=== PATIENT | male | born 1975 | race Caucasian/White ===

== ENCOUNTER 2019-08-31 19:28 | Emergency (ER) | payer OTHER, SELFPAY ==
[2019-08-02 13:54] VITALS: BMI 28.2
[2019-08-31 19:30] VITALS: BP 137/85; PULSE 110; RESP 18; TEMP 37.4; O2SAT 96; BMI 33.5
--- NOTE | 2019-08-31 20:42 | ED.DCSUM_ITS ---
- ER Visit Summary Date of Service: 08/31/19 Chief Complaint: Left middle finger laceration History of Present Illness: The patient is a 44 M who presents with a laceration to his left middle finger that occurred today. Patient states he was cutting wood when a piece of wood kicked up and hit his middle finger. Patient states this happened approximately 11 hours prior to arrival. Patient denies any weakness. Patient admits to some mild numbness in the tip of his finger. Patient states the bleeding has been intermittent throughout the day. Patient states his last tetanus was between 5 and 10 years ago. Physical Examination: Vital signs are stable. Patient is afebrile. Patient is in no acute distress. Skin is warm and dry. There is a 1.5 cm linear laceration over the pad of the distal phalanx of the left middle finger. There is no bony crepitance or step-off. There is full range of motion of the left middle finger. Sensation was intact to light touch in all digits. Capillary refill was less than 2 seconds in all digits. There are no foreign bodies noted. There is no active bleeding noted. Emergency Department Course and Treatment: The left middle finger was cleaned. The wound was anesthetized with 1% plain lidocaine locally. The wound was irrigated with copious amounts of normal saline. The wound was closed with 2 simple interrupted #5-0 nylon sutures under sterile technique. Bacitracin dressing was applied. Patient tolerated the procedure well. Patient was instructed to keep the wound clean and dry. Patient was instructed to follow-up with his primary care physician in 7 days for wound recheck and suture removal. Patient understood and was agreeable with the plan. All questions were answered. Disposition: Discharge home Impression: Left middle finger laceration This note was generated with [employer] dictation software. It may contain incorrect words, spelling, and punctuation that were not noted in review of the chart prior to signing ED Disposition - Plan for ED Patient: Disposition: Home or Assisted Living Diagnosis: Laceration of left middle finger w/o foreign body w/o damage to nail Instructions: LACERATION, Extrem (Suture, Staple or Tape) Referrals: Devika Nj DO [Primary Care Provider] - 7 Days for suture removal
[2019-08-31 20:54] VITALS: PULSE 80; RESP 16
== END 2019-08-31 20:55 | disposition home or self-care (01) ==
PROVIDERS: Emergency Provider Emergency Medicine; Family Provider Internal Medicine; PCP Internal Medicine
DX: S61.213A Laceration without foreign body of left middle finger without damage to nail, initial encounter (principal); W22.8XXA Striking against or struck by other objects, initial encounter; Y93.9 Activity, unspecified; Y92.9 Unspecified place or not applicable; I10 Essential (primary) hypertension; E78.00 Pure hypercholesterolemia, unspecified; Z79.899 Other long term (current) drug therapy
CPT/HCPCS: 12001; 99285

== ENCOUNTER → 2019-11-10 | Outpatient (CLI) | payer OTHER, SELFPAY | END | disposition home or self-care (01) | PROVIDERS: PCP Internal Medicine; Referring Provider Dermatology; Visit Provider Dermatology | DX: L02.32 Furuncle of buttock (principal); L30.0 Nummular dermatitis; L57.8 Other skin changes due to chronic exposure to nonionizing radiation; Z09 Encounter for follow-up examination after completed treatment for conditions other than malignant neoplasm; Z87.2 Personal history of diseases of the skin and subcutaneous tissue | CPT/HCPCS: 87070; 87186; 87205 ==

== ENCOUNTER → 2019-12-12 | Outpatient (CLI) | payer OTHER, SELFPAY ==
--- NOTE | 2019-12-12 12:44 | MRI_ITS ---
STUDY: MRI RIGHT ANKLE WITHOUT CONTRAST REASON FOR EXAM: Right ankle pain and swelling after fracture with ORIF in November 2015, evaluate for posttraumatic ankle arthritis and posterior tibialis tendon tear. TECHNIQUE: Standardized fat and water weighted pulse sequences were obtained in all 3 orthogonal planes. COMPARISON: Radiographs 11/26/2013. FINDINGS: There is postoperative scarring in the subcutis adipose space. Normal posterior tibialis tendon. Normal flexor digitorum longus tendon. Normal flexor hallucis longus tendon. There is a small longitudinal split of the perimalleolar peroneus brevis tendon (T2 axial images 18, 19). The peroneus longus tendon is morphologically normal. Normal tibialis anterior tendon. Normal extensor hallucis longus tendon. Normal extensor digitorum longus tendons. Normal Achilles tendon and teno-osseous insertion. Normal plantar fascia. Normal plantar calcaneal tubercles. Normal intrinsic muscles of the rearfoot. There is mild thickening of the anterior tibiofibular ligament of the distal tibiofibular syndesmotic ligamentous complex consistent with scarring (T2 axial image 13). There is attenuation of the anterior talofibular ligament (T2 axial image 18) consistent with chronic partial tear. Normal calcaneofibular and posterior talofibular ligaments. Normal subtalar ligaments and sinus tarsi. Normal deltoid ligamentous complexes. Normal plantar calcaneonavicular (spring) ligament. There is arthrosis of the tibiotalar articulation with marginal osteophytes, chondral thinning and subchondral cystic change/bone edema of the posterior tibial plafond and adjacent talar dome (inversion recovery sagittal images 11-15). There are intra-articular bodies in the anterior and posterior tibiotalar articulation (T1 sagittal images 12-14, 16), the largest measuring 0.7 cm in length. There is chronic healed fracture deformity of the posterior malleolus (T1 sagittal images 13, 14). There is artifact from orthopedic hardware in the distal fibula. Normal subtalar articulations. Normal talonavicular articulation. Normal calcaneocuboid articulation. Normal navicular-cuneiform articulations. MRI/Lower Ext Joint Only (Routine) IMPRESSION: Tibiotalar arthrosis with intra-articular bodies. Small longitudinal split of the peroneus brevis tendon. Scarring of the anterior tibiofibular ligament. Attenuation of the anterior talofibular ligament. No demonstrated posterior tibialis tendon tear. Electronically Signed: Jeffrey Ellis MD at 14:10 EDT Tel , Service support ,
== END | disposition home or self-care (01) ==
PROVIDERS: PCP Internal Medicine; Referring Provider Podiatrist; Visit Provider Podiatrist
DX: M19.171 Post-traumatic osteoarthritis, right ankle and foot (principal); S86.111A Strain of other muscle(s) and tendon(s) of posterior muscle group at lower leg level, right leg, initial encounter
CPT/HCPCS: 73721

== ENCOUNTER → 2020-08-10 09:28 | Outpatient (CLI) | payer OTHER, SELFPAY ==
[2020-08-10 13:30] LABS: ALB/GLOB Ratio 1.3 RATIO (0.9-2.4); AST(SGOT) 42 U/L (15-37); Alanine Aminotransfer ALT/SGPT 72 U/L (16-61); Albumin, Serum 4.3 g/dL (3.2-5.0); Alkaline Phosphatase 73 U/L (45-117); Anion Gap 7 (5-15); BUN 16 mg/dL (7-18); Calcium,Total 9.4 mg/dL (8.5-10.1); Chloride 105 mmol/L (98-107); Cholesterol 215 mg/dL (200); Creatinine, Serum 1.23 mg/dL (0.70-1.30); EST Glomerular Filtration Rate 67 mL/min (>60); Est Glom Filt Rate - Afr Amer 81 mL/min (>60); Globulin 3.4 g/dL (2.2-4.2); Glucose 98 mg/dL (74-106); High Density Lipoprotein 49 mg/dL; Potassium 3.9 mmol/L (3.5-5.1); Protein, Total 7.7 g/dL (6.4-8.2); Sodium Level 139 mmol/L (136-145); Triglycerides 276 mg/dL; Very Low Density Lipoprotein 55 mg/dL (5-40)
== END ==
PROVIDERS: PCP Family Medicine; Visit Provider Family Medicine
DX: Z00.00 Encounter for general adult medical examination without abnormal findings (principal)
CPT/HCPCS: 36415; 80053; 80061

== ENCOUNTER 2020-11-20 13:40 | Outpatient (RCR) | payer OTHER, SELFPAY ==
[2020-11-20] MEDS: COVID-19 VACC, MRNA(PFIZER)/PF 30 MCG/0.3 ML SYRINGE IM (07:31)
[2020-12-11] MEDS: COVID-19 VACC, MRNA(PFIZER)/PF 30 MCG/0.3 ML SYRINGE IM (07:29)
== END 2021-02-12 23:59 ==
LOC: IMMUN 13:40
PROVIDERS: PCP Family Medicine; Referring Provider Family Medicine; Visit Provider Family Medicine
DX: Z23 Encounter for immunization (principal)
CPT/HCPCS: 0001A; 0002A; 91300

== ENCOUNTER → 2020-12-03 09:57 | Outpatient (CLI) | payer OTHER, SELFPAY ==
[2020-11-22 14:49] VITALS: BMI 31.2
--- NOTE | 2020-12-03 10:01 | US_ITS ---
STUDY: ABDOMINAL ULTRASOUND - lower quadrants. REASON FOR VISIT: Male, 45 years old multiple hernias -- attn. Mesh edge--kaila pt abdomen at mesh edges pls* TECHNIQUE: Ultrasound evaluation of the lower quadrants was performed with real-time and static beard-scale imaging. TECHNICAL QUALITY: Adequate. COMPARISON: None. FINDINGS: There is evidence of left inguinal hernia containing bowel as well as adipose tissue. The patient is status post right inguinal and umbilical hernia repair. The mesh is seen superior to the level of the umbilicus along the midline of the abdomen. The mesh is not deep or inferior to the umbilicus. Mesh is also seen in the right inguinal region. US/Abdomen Limited IMPRESSION: Left inguinal hernia containing bowel and adipose tissue. Status post repair of the umbilical hernia and right inguinal hernia with evidence of a mesh superior to the umbilicus. Deep to the umbilicus and inferior to the umbilicus there is no evidence of mesh. Electronically Signed: Maximus Wade MD at 11:06 EDT , Service support ,
== END ==
PROVIDERS: PCP Family Medicine; Referring Provider Surgery; Visit Provider Surgery
DX: K40.91 Unilateral inguinal hernia, without obstruction or gangrene, recurrent (principal); Z87.19 Personal history of other diseases of the digestive system; Z98.890 Other specified postprocedural states
CPT/HCPCS: 76705

== ENCOUNTER 2020-12-24 08:58 | Day surgery (SDC) | payer OTHER, SELFPAY ==
[2020-11-22 14:49] VITALS: BMI 31.2
--- NOTE | 2020-12-20 10:24 | EKG12_ITS ---
Test Reason : PREOP Blood Pressure : / mmHG Vent. Rate : 067 BPM Atrial Rate : 067 BPM P-R Int : 170 ms QRS Dur : 088 ms QT Int : 404 ms P-R-T Axes : 020 053 022 degrees QTc Int : 426 ms Normal sinus rhythm with sinus arrhythmia Normal ECG Confirmed by WILLIAM BURNETT, EVERT ([id number]), editor in chief GEO LI ([id number]) on 12/21/2020 11:53:00 AM Referred By: Kahsmir Sánchez Confirmed By:EVERT THOMAS MD
[2020-12-20 11:29] LABS: Hematocrit 45.1 % (40-54); Hemoglobin 14.5 g/dL (13.0-16.5); Mean Corp Hgb Conc 32.2 g/dL (32-36); Mean Corpuscular Hgb 30.8 pg (27.0-32.0); Mean Corpuscular Volume 95.8 fL (80-94); Mean Platelet Vol. 11.5 fl (6.2-12.0); Platelet Count 304 K/mm3 (150-450); RBC Distribution Width CV 12.8 % (11.6-14.6); RBC Distribution Width SD 45.6 fl (35.1-43.9); Red Blood Count 4.71 M/mm3 (4.6-6.2); White Blood Count 5.2 K/mm3 (4.4-11.0)
[2020-12-20 12:10] LABS: Anion Gap 6 (5-15); BUN 13 mg/dL (7-18); BUN/Creat Ratio 12.6 RATIO (10-20); Calcium,Total 9.3 mg/dL (8.5-10.1); Chloride 106 mmol/L (98-107); Creatinine, Serum 1.03 mg/dL (0.70-1.30); EST Glomerular Filtration Rate 82 mL/min (>60); Est Glom Filt Rate - Afr Amer 99 mL/min (>60); Glucose 91 mg/dL (74-106); Potassium 4.1 mmol/L (3.5-5.1); Sodium Level 139 mmol/L (136-145)
[2020-12-24] VITALS (9 sets, daily range): BP systolic 97–140; BP diastolic 59–80; PULSE 60–83; RESP 16–18; TEMP 35.9–37.2; O2SAT 92–100; BMI 33.0
[2020-12-24] MEDS: Lactated Ringers 1,000 ML 100 ML IV ×3 (09:43→13:16)
--- NOTE | 2020-12-24 09:43 | HP.PCM_ITS ---
Problem List (1) Recurrent right inguinal hernia Status: Acute (2) Left inguinal hernia Status: Acute History and Physical Date of Admission: 12/24/20 Intake Intake Visit Reasons: f/u abdominal markings Chief Complaint: discuss surgery Allergies No Known Allergies Allergy (Verified 12/04/20 12:00) [facility] Medical History (Updated 11/22/20 @ 15:[address] Kashmir Sánchez MD) Recurrent right inguinal hernia (Acute) Left inguinal hernia (Acute) Knee pain (Acute) Hypertension (Chronic) Surgical History (Updated 11/22/20 @ 15:[address] Kashmir Sánchez MD) History of ventral hernia repair (Acute) HISTORY OF LEFT FOOT SURGERY (Acute) History of hernia repair (Acute) Family History Father Hypertension Social History (Updated 12/04/20 @ 12:[address] Kashmir Sánchez MD) Smoking Status: Never smoker alcohol intake: current alcohol intake frequency: a few times a week HPI HPI HPI: JIGAR SWANSON, is a 45 M who presents to the office today for discussion regarding abdominal ultrasound. I had wanted to CT scan as elucidated in my note below. Insurance would only cover an ultrasound. On ultrasound the tech felt that the inferior extent of the mesh was just close to the umbilicus but did not appear to extend below it. This would therefore allow range to gain access to the abdomen carefully with an Krause technique through the umbilicus. He returned today to discuss his future. Intake Visit Reasons: Hernia Chief Complaint: Left inguinal hernia Outpatient Coding Specialist Required: No Is patient in pain?: No Allergies No Known Allergies Allergy (Verified 11/22/20 14:50) Medications atorvastatin 20 mg tablet 20 mg pe PO DAILY #30 tab 08/02/19 [History Confirmed 11/22/20] lisinopril 10 mg tablet 10 mg PO DAILY #90 tab 08/02/19 [History Confirmed 11/22/20] tamsulosin 0.4 mg capsule 0.4 mg PO QHS #30 cap 11/22/20 [Rx Confirmed 11/22/20] [facility] Medical History Left inguinal hernia (Acute) Knee pain (Acute) Hypertension (Chronic) Surgical History HISTORY OF LEFT FOOT SURGERY (Acute) History of hernia repair (Acute) Family History Father Hypertension Social History (Updated 11/22/20 @ 15:[address] Kashmir Sánchez MD) Smoking Status: Never smoker alcohol intake: current alcohol intake frequency: a few times a week HPI HPI HPI: JIGAR SWANSON, is a 45 M who presents to the office today for surgical consultation regarding what he feels is an obvious left inguinal hernia. Patient is referred by Dr. Romero Schwarz a written copy my surgical consult recommendations will return to him. The patient long ago played soccer in high school. 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 Over the past year he has noted progressive bulging and discomfort in the left groin. Reports that when he was 1-year-old he had a right inguinal hernia repair. The patient previously had a mesh ventral hernia repair. Then that broke down and on December 18 Dr. Rosalino Moya performed a ventral incisional hernia repair for 2 different defects in the upper midline as well as a umbilical hernia repair. He excised the previous circular piece of 4 x 4 centimeter mesh. He placed a Bard composite 6EX mesh 10.2 x 15.2 cm ellipse. This would have been placed so as to incorporate a small umbilical defect as well. It is of note that the patient did have COVID-19 with symptom resolution by September 21, 2020. Claims that he had headache and particularly fever that lingered for 15 days. He claims that he no longer has any side effects. HPI HPI HPI: JIGAR SWANSON, is a 45 M who presents to the office today for ROS General General: No weight change, appetite, fatigue, colon cancer, breast cancer or weakness HEENT HEENT: No difficulty swallowing, eye injury, eye surgery, swollen glands or hoarseness Endo Endocrine: No thyroid disease, diabetes mellitus, thyroid cancer, Hair loss, heat intolerance or cold intolerance Musc Musculoskeletal: Yes arthritis; no back problems, rheumatoid arthritis, gout or joint pain Cardio Cardiovascular: Yes high blood pressure; no murmur, pacemaker, heart disease, atrial fibrillation, heart attack, heart stent, palpitations, shortness of breat with exertion or chest pain Psych Psychiatric: No depression, anxiety or hearing voices Resp Respiratory: No shortness of breath, No sleep apnea, No cough, No COPD, No asthma, No emphysema, No wheezing Gastro Gastrointestinal: No abdominal pain, No nausea or vomiting, No diarrhea, No constipation, No blood in stool, No acid reflux, Yes hemorrhoids, No ulcers, No gallbladder problem, No black,tarry stools Curtis Hematologic: No blood thinners, No blood disorders, No bleeding, No anemia, No blood clots Neuro Neurologic: No system reviewed and no additional complaints, except as docu, No as per HPI, No abnormal walking, No abnormal hearing, No abnormal movements, No abnormal speech, No behavioral changes, No burning sensations, No confusion, No seizure-like activity, No unsteadiness, No dizziness, No localized weakness, No frequent falls, No headache(s), No lack of coordination, No loss of vision, No memory loss, No numbness, No other visual disturbances, No radiating pain, No restless legs, No sensory deficit, No fainting, No tingling, No tremor(s), No weakness, No other Exam Const General: cooperative, healthy appearing, comfortable, no acute distress Nutritional Appearance: overweight Orientation: alert, awake [facility] Head: normal to inspection Resp Effort & Inspection: normal respiratory effort Auscultation: clear to auscultation bilaterally Cardio Rate: regular rate Rhythm: regular rhythm Heart Sounds: no murmurs GI Palpation: soft, no hepatosplenomegaly Auscultation: normal bowel sounds Other: Large partially reducible indirect left inguinal hernia. Testicles are descended. Smaller recurrent right inguinal defect. Fibrofatty fullness as well. Skin General: no rashes or lesions noted Neuro General: alert, awake Cognition: normal cognition Extrem General: no calf tenderness Psych Affect: normal affect Assessment & Plan 1. Hernia K46.9 Orders Orders: Abdomen/Pel W ORAL Cont Only Today 2. Left inguinal hernia K40.90 3. Recurrent right inguinal hernia K40.91 4. History of ventral hernia repair Z98.890; Z87.19 Plan Very pleasant 45-year-old gentleman. He clearly has a new significant left inguinal hernia which is mostly reducible. His description includes possible sigmoid colon involvement. On clinical examination he also has evidence of a recurrent right inguinal hernia. He has had what sounds like a recently extensive supraumbilical ventral herniorrhaphy with extensive the mesh below the umbilicus. I would like to offer him a laparoscopic bilateral inguinal herniorrhaphy due to the recurrence on the right and the fact that there are bilateral defects. I explained to him the technique, benefit, risk, alternatives. I will be initiating him on Flomax 0.4 mg to be taken nightly. We will start that soon. I recommend to him a CT of the abdomen pelvis. I will carefully inspect his for the previously placed mesh. Patient is aware that gaining access to his abdomen will be the porter component. She is aware of the potential of bowel injury. He is aware of the potential need for lysis of adhesions. He has had an opportunity to ask and have questions answered. It is my belief that the benefits of a laparoscopic approach are warranted in this situation. We will try to maximize the safety of our approach to entering the abdomen. Copy: Dr. Romero Sánchez M.D., F.A.C.S. HPI HPI HPI: JIGAR SWANSON, is a 45 M who presents to the office today for Assessment & Plan Problems 1. Recurrent right inguinal hernia K40.91 2. Left inguinal hernia K40.90 Plan The patient does have some nocturia. He will initiate Flomax therapy as already prescribed nightly 2 to 3 weeks prior to his planned operative date. We antici kovacs a laparoscopic bilateral inguinal hernia repair. Very careful access to the abdomen through a infraumbilical Krause technique will be utilized. Ultrasound suggest that the previous ventral hernia placed mesh is just at the upper limits of the umbilicus. The patient is aware of technique, benefit, risk, alternatives. He has had an opportunity to ask and have questions answered. We will proceed as noted. Primary care is Dr. Romero Sánchez M.D., F.A.C.S. Coding Level of Care Code Off vis,est,level 1 Diagnoses Recurrent right inguinal hernia K40.91 Left inguinal hernia K40.90 I have re-examined the patient. There are no clinical changes since date of exam. Procedure Criteria Procedure Type: Elective COVID Risk Discussion: The surgeon/proceduralist and patient have discussed in detail the risk of exposure to and/or potential harm posed by the COVID-19 virus with having a surgery/procedure at this time versus the risk of delaying the surgery/procedure. It is not possible to know either the risk of delaying the surgery or procedure or chance of getting an infection with perfect accuracy, but a joint decision was made between the patient and the surgeon/proceduralist to proceed at this time with the scheduled surgery/procedure as indicated on the consent form.
--- NOTE | 2020-12-24 09:53 | PCM.DC.GS ---
Discharge Diet: Light diet - advance as tolerated - if you have questions about your diet instructions, please talk to you doctor. Discharge Activity: May Not Drive - for 1 week or while taking narcotic pain medicine. May shower in (days): 1 Lifting Restrictions: 10 pounds Call your doctor if your incision/area has: Continuous Slow Oozing, Sudden Increased Bleeding, Increased Pain/ Swelling, Increased Redness, Foul Smelling Discharge Call your doctor if you observe: Fever of 101 or Higher Suture Line Care: Avoid Pulling/Pushing, Avoid Pinching/Bending Additional Dressing/Incision Instructions:: Change or remove dressing in 4 days. Leave steri-strips in place for 1 week. Additional Instructions: Side bar a Poe catheter first thing morning. Notify my office if unable to void Allergies/Adverse Reactions: Allergies No Known Allergies Allergy (Verified 12/18/20 13:19) Medications to take at Discharge atorvastatin 20 mg tablet 20 mg PO DAILY #30 tab 08/02/19 lisinopril 10 mg tablet 10 mg PO DAILY #90 tab 08/02/19 tamsulosin 0.4 mg capsule 0.4 mg PO QHS #30 cap 11/22/20 Multivitamin with Minerals [Multiple Vitamin] 1 each PO DAILY 12/18/20 Sulfamethoxazole/Trimethoprim [Bactrim Ds Tablet] 1 each PO BID #10 tablet 12/24/20 The following prescriptions were given: Sulfamethoxazole/Trimethoprim [Bactrim Ds Tablet] 1 each PO BID #10 tablet Transmission Status: Pending to [facility] Primary Care Physician: Romero Schwarz DO [Primary Care Provider] - Test Results: Test results from this visit will be discussed in further detail at your follow-up appointment, if applicable. Please Follow Up With: Kashmir Sánchez MD - [phone] When: Call to make an appointment to be seen in about 10 days.
[2020-12-24] MEDS: Cefazolin 2 GM in 0.9% Normal Saline 100 ML IV (10:24)
[2020-12-24] MEDS: Bupivacaine Mpf 0.5% 30 ML VIAL (10:55)
--- NOTE | 2020-12-24 12:44 | OP.PCM_ITS ---
Problem List (1) Recurrent right inguinal hernia Status: Acute (2) Left inguinal hernia Status: Acute Report of Operation Date of Procedure: 12/24/20 Pre-Operative Diagnosis: Recurrent right inguinal hernia. Indirect left i nguinal hernia Post-Operative Diagnosis: Recurrent indirect right inguinal hernia. Large indirect left inguinal hernia. Extensive intra-abdominal adhesions of omentum and small bowel to the anterior abdominal wall Surgery/Procedure Performed:: Laparoscopic recurrent right inguinal herniorrhaphy with Bard 3D max large right mesh, reference [id number], lot number [id number]. Expiry date 06/04/2025. Laparoscopic left inguinal hernia repair with Bard 3D max left extra-large mesh, reference [id number], lot number [id number], expiry date October 04, 2024 Description of Surgical Findings:: Timeout and informed consent was obtained. 45-year-old gentleman was taken to the operating place upon the table underwent general endotracheal intubation esthesia Ancef 2 g were given intravenously the abdomen sterilely prepped and draped 0.5% Marcaine was used as a local anesthetic a total of 30 cc was used. Skin sites were preanesthetized. At the completion of the procedure 1% lidocaine was additionally used as a local anesthetic.. A vertical infraumbilical incision was made sharp dissection carried down through subcutaneous tissue Prolene suture was identified and cut sharply incised as direct access was gained to the abdomen. A free space was entered. An Krause catheter inserted. Unfortunate appeared that the omentum was adherent to the anterior abdominal wall superior to the umbilicus. There was evidence of small bowel adherent in the infraumbilical midline area. I was able to gain visualization was able to place a 5 mm port laterally in the right under direct laparoscopic visualization. I then was able to gain visualization of the left lower quadrant and I placed two 5 mm ports there. Great care was taken to avoid any of the small bowel adhesions. It is of note that the small about almost look like was sutured to the anterior abdominal wall it was that adherent. I am sure it simply the fascial sutures and the adherent small bowel to the. At this point I felt that trying to free the small bowel would ultimately likely result in enterotomy. With the 5 mm trocar sites and the position I was able to gain access to bilateral inguinal areas. Although I could not place the mesh through the Krause and place it directly in the pelvis I could place it further into the upper mid abdomen and then located and move it down to the pelvis through the side-port. The peritoneum superior lateral to the internal ring was incised carried medially sharp and blunt dissection was used to completely dissect the peritoneum free. There was adherence laterally particularly consistent the patient's previous repair. I was able to completely free the peritoneum however so that the direct indirect and femoral area was on view. I now gained attention of the left inguinal hernia this was quite a sizable hernia with significant bulging in the groin. The peritoneum was incised superior lateral to the midline and then very tedious sharp and blunt dissection was required. The sac was quite sizable. There was a cord lipoma. I tediously dissected that free until again I had the large indirect opening identified on the left the femoral vessels identified the inferior epigastrics the medial space pubic tubercle the bladder had been deflected posteriorly. I then placed a Bard left extra-large mesh on the left secure that in place with secure strap laterally and superiorly. I placed a Bard 3D max large right-sided mesh on the right. It also sat very nicely in position overlapped the mesh from the left and I secured in place laterally superiorly and then medially with secure strap. Both sides of the mesh generously covered the defect areas. They had very nice positioning. I then approximated the peritoneum to itself bilaterally using hemolock clips with secure strap. Complete obliteration of the mesh was achieved. There was absolutely no evidence of any bowel injury. The abdomen was allowed to deflate through antiviral valve. The fascia at the assigned port site was closed with simple sutures of #1 Nurolon. Skin edges were approximated opted for Monocryl subdermal stitches. Steri-Strips Telfa OpSite dressings applied. Sponge and instrument and needle counts were reported to the surgeon to be correct. Specimens none. Blood loss minimal. Drains none. The patient was taken to recovery area in satisfactory edition without apparent complication Kashmir Sánchez M.D., F.A.C.S. Type of Anesthesia:: General Anesthesiologist: Edmond Mckinney
[2020-12-24] MEDS: Lidocaine 1% (30 ml sdv) 30 ML Vial (12:48)
[2020-12-24] MEDS: Acetaminophen 325 MG Tablet 650 MG PO (14:31)
== END 2020-12-24 18:10 | disposition home or self-care (01) ==
LOC: SDC 09:02 → AC 09:02
PROVIDERS: PCP Family Medicine; Referring Provider Surgery; Visit Provider Surgery
PROC: (CPT 49650; principal; 2020-12-24 10:45)
DX: K40.91 Unilateral inguinal hernia, without obstruction or gangrene, recurrent (principal); K40.90 Unilateral inguinal hernia, without obstruction or gangrene, not specified as recurrent; I10 Essential (primary) hypertension; E78.00 Pure hypercholesterolemia, unspecified; Z79.899 Other long term (current) drug therapy; Z86.16 Personal history of COVID-19
CPT/HCPCS: 49650; 49651; 36415; 80048; 85027; 93005; J7120; C1781; J2405

== ENCOUNTER → 2022-11-27 | Outpatient (CLI) | payer BC, SELFPAY ==
[2022-11-27 12:32] LABS: Absolute Lymphocyte Count 0.83 X10^3/uL (0.83-4.51); Absolute Neutrophil Count 3.2 X10^3/uL (2.0-7.7); Basophil# 0.05 X10^3/uL; Basophil% 1.1 % (0-1); Eosinophil# 0.22 X10^3/uL; Eosinophils% 4.7 % (0-5); Hematocrit 45.5 % (40-54); Hemoglobin 14.9 g/dL (13.0-16.5); Lymphocyte # 0.83 X10^3/ul (0.83-4.51); Lymphocyte % 17.6 % (19-41); Mean Corp Hgb Conc 32.7 g/dL (32-36); Mean Corpuscular Hgb 31.3 pg (27.0-32.0); Mean Corpuscular Volume 95.6 fL (80-94); Mean Platelet Vol. 12.1 fl (6.2-12.0); Monocyte# 0.41 X10^3/uL; Monocyte% 8.7 % (0-10); NRBC Flagged by Analyzer 0 % (0-5); Neutrophil # 3.19 X10^3/uL (2.7-7.7); Neutrophil % 67.7 % (47-70); Platelet Count 279 K/mm3 (150-450); RBC Distribution Width CV 12.9 % (11.6-14.6); RBC Distribution Width SD 45.4 fl (35.1-43.9); Red Blood Count 4.76 M/mm3 (4.6-6.2); White Blood Count 4.7 K/mm3 (4.4-11.0)
[2022-11-27 13:02] LABS: ALB/GLOB Ratio 1.3 RATIO (0.9-2.4); AST(SGOT) 43 U/L (15-37); Alanine Aminotransfer ALT/SGPT 66 U/L (16-61); Albumin, Serum 4.3 g/dL (3.2-5.0); Alkaline Phosphatase 73 U/L (45-117); Anion Gap 7 (5-15); BUN 14 mg/dL (7-18); BUN/Creat Ratio 10.7 RATIO (10-20); Calcium,Total 9.3 mg/dL (8.5-10.1); Chloride 104 mmol/L (98-107); Cholesterol 202 mg/dL (200); Creatinine, Serum 1.31 mg/dL (0.70-1.30); EST Glomerular Filtration Rate 62 mL/min (>60); Est Glom Filt Rate - Afr Amer 75 mL/min (>60); Globulin 3.4 g/dL (2.2-4.2); Glucose 105 mg/dL (74-106); High Density Lipoprotein 49 mg/dL; Potassium 4.2 mmol/L (3.5-5.1); Protein, Total 7.7 g/dL (6.4-8.2); Sodium Level 141 mmol/L (136-145); Triglycerides 243 mg/dL; Very Low Density Lipoprotein 49 mg/dL (5-40)
== END | disposition home or self-care (01) ==
LOC: BFHLAB 08:37
PROVIDERS: PCP Family Medicine; Referring Provider Family Medicine; Visit Provider Family Medicine
DX: Z00.00 Encounter for general adult medical examination without abnormal findings (principal)
CPT/HCPCS: 36415; 80053; 80061; 85025

== ENCOUNTER 2023-01-20 06:00 | Day surgery (SDC) | payer BC, SELFPAY ==
[2023-01-20] VITALS (11 sets, daily range): BP systolic 99–126; BP diastolic 45–80; PULSE 76–96; RESP 16–95; TEMP 36.4–36.9; O2SAT 92–100; BMI 33.2
--- NOTE | 2023-01-20 06:13 | PCM.HP.STD ---
[facility] - General General Date of Service: 01/20/23 Chief Complaint: Screening for intestinal cancer HPI Narrative JIGAR SWANSON, is a 47 M who presents for screening colonoscopy today. He presents via open access. He has no family history of colon cancer. Previous scope was over 25 years ago. No bright red blood per rectum or melena. He otherwise feels well. [facility] Medical History (Updated 01/19/23 @ 10:31 by Diana Hahn) Alcohol use Arthritis Cancer Heartburn High cholesterol History of edema History of pain when walking Hx of fracture of ankle Hypertension Knee pain Left inguinal hernia Leg cramps Migraine headache Non-smoker Recurrent right inguinal hernia Wears glasses Home Medications atorvastatin 20 mg tablet 20 mg PO DAILY #30 tabs 08/02/19 [History Last Taken 12/24/20 07:00] lisinopril 10 mg tablet 10 mg PO DAILY #90 tabs 08/02/19 [History Last Taken 12/24/20 07:00] multivitamin with minerals 1 each PO DAILY 12/18/20 [History Last Taken Unknown] loratadine 10 mg tablet (Claritin) 10 mg PO DAILY PRN ALLERGIES 12/09/22 [History Last Taken Unknown] Allergy/AdvReac Type Severity Reaction Status Date / Time No Known Allergies Allergy Verified 01/19/23 10:24 Family History Father Hypertension Surgical History (Updated 01/19/23 @ 10:31 by Diana Hahn) History of bilateral inguinal hernia repair History of hernia repair HISTORY OF LEFT FOOT SURGERY History of ventral hernia repair Hx of colonoscopy Social History Smoking Status: Never smoker alcohol intake: current alcohol intake frequency: a few times a week ROS Constitutional Constitutional: Reports systems reviewed and no addt'l complaints, except as documented Cardiovascular Cardiovascular: Denies chest pain Respiratory/Chest Respiratory/Chest: Denies shortness of breath at rest Gastrointestinal Gastrointestinal: Denies abdominal pain, change in bowel habits, hematochezia or melena Physical Exam Const alert, oriented x3 and no apparent distress General Appearance: cooperative and comfortable Eyes General Eye: normal appearance of both eyes Neck General: normal visual inspection Chest inspection of chest normal Resp Effort and Inspection: able to speak in complete sentences and symmetric chest movement Auscultation: clear to auscultation bilaterally Cardio regular rate and regular rhythm GI soft to palpation, non-tender and non-distended Extremity no calf tenderness Neuro oriented x3 Psych thought process normal Assessment & Plan Assessment/Plan (1) Encounter for screening for malignant neoplasm of colon: PLAN: Patient presents for screening colonoscopy today. He is aware of the technique, benefit, risk, alternatives. He presents via open access. He has had an opportunity to ask and have questions answered. We will proceed as noted. Kashmir Sánchez M.D., F.A.C.S.
[2023-01-20] MEDS: Lactated Ringers 1,000 ML 15 ML IV (06:43)
[2023-01-20] MEDS: Midazolam 5 MG/ML Syringe (07:25)
--- NOTE | 2023-01-20 07:29 | OP.COLON_ITS ---
Patient Name: Shaheen Alanis Procedure Date: 01/20/2023 7:05 AM Date of : 1975 Age: 47 Procedure: Colonoscopy Indications: Screening for colorectal malignant neoplasm Providers: Kashmir Sánchez MD Referring MD: Kashmir Sánchez MD Medicines: Midazolam 5 mg IV, Meperidine 100 mg IV Patient Profile: Last Colonoscopy: more than 10 years ago. Complications: No immediate complications. Procedure: Pre-Anesthesia Assessment: - Prior to the procedure, a History and Physical was performed, and patient medications and allergies were reviewed. The patient's tolerance of previous anesthesia was also reviewed. The risks and benefits of the procedure and the sedation options and risks were discussed with the patient. All questions were answered, and informed consent was obtained. Prior Anticoagulants: The patient has taken no previous anticoagulant or antiplatelet agents. ASA Grade Assessment: II - A patient with mild systemic disease. After reviewing the risks and benefits, the patient was deemed in satisfactory condition to undergo the procedure. After I obtained informed consent, the scope was passed under direct vision. Throughout the procedure, the patient's blood pressure, pulse, and oxygen saturations were monitored continuously. The colonoscope was introduced through the anus and advanced to the cecum, identified by appendiceal orifice and ileocecal valve. The colonoscopy was performed without difficulty. The patient tolerated the procedure well. The quality of the bowel preparation was good. The ileocecal valve and the appendiceal orifice were photographed. Moderate Sedation: Moderate (conscious) sedation was personally administered by the endoscopist. The following parameters were monitored: oxygen saturation, heart rate, blood pressure, and response to care. Total physician intraservice time was 15 minutes. Scope In: 7:13:41 AM Scope Withdrawal Time 0 hours 7 minutes 56 seconds Scope Out: 7:25:51 AM Total Procedure Duration Time 0 hours 12 minutes 10 seconds Findings: The digital rectal exam findings include non-thrombosed internal hemorrhoids and internal hemorrhoids (Grade I). Pertinent negatives include normal prostate (size, shape, and consistency). Multiple diverticula were found in the sigmoid colon and descending colon. The exam was otherwise without abnormality. Impression: - Non-thrombosed internal hemorrhoids and internal hemorrhoids (Grade I) found on digital rectal exam. - Diverticulosis in the sigmoid colon and in the descending colon. - The examination was otherwise normal. - No specimens collected. Recommendation: - Discharge patient to home. - Resume previous diet. - Continue present medications. - Repeat colonoscopy in 10 years for screening purposes. Procedure Code(s): --- Professional --- 37556, Colonoscopy, flexible; diagnostic, including collection of specimen(s) by brushing or washing, when performed (separate procedure) 16397, 59, Moderate sedation services provided by the same physician or other qualified health hospice care consultant performing the diagnostic or therapeutic service that the sedation supports, requiring the presence of an independent trained observer to assist in the monitoring of the patient's level of consciousness and physiological status; initial 15 minutes of intraservice time, patient age 5 years or older Diagnosis Code(s): --- Professional --- Z12.11, Encounter for screening for malignant neoplasm of colon K64.0, First degree hemorrhoids K57.30, Diverticulosis of large intestine without perforation or abscess without bleeding CPT copyright 2017 [employer]. All rights reserved. The codes documented in this report are preliminary and upon tractor mechanic helper review may be revised to meet current compliance requirements. Kashmir Sánchez MD 01/20/2023 7:29:46 AM This report has been signed electronically. Number of Addenda: 0 Note Initiated On: 01/20/2023 7:05 AM
--- NOTE | 2023-01-20 07:30 | OP.CCLET_ITS ---
01/20/2023 Romero Schwarz [id number] [place] [address] Re : Colonoscopy procedure for Shaheen Alanis Dear Dr. Schwarz This procedure was performed on Friday, January 20, 2023. My impressions and recommendations are as follows: Impressions : - Non-thrombosed internal hemorrhoids and internal hemorrhoids (Grade I) found on digital rectal exam. - Diverticulosis in the sigmoid colon and in the descending colon. - The examination was otherwise normal. - No specimens collected. Recommendations : - Discharge patient to home. - Resume previous diet. - Continue present medications. - Repeat colonoscopy in 10 years for screening purposes. My findings are described in the full procedure note, which is enclosed. If I can be of further assistance, please feel free to contact me at Doctor phone number(s): Work: . Sincerely, Kashmir Sánchez MD 01/20/2023 7:29:46 AM This report has been signed electronically.
== END 2023-01-20 08:21 | disposition home or self-care (01) ==
LOC: EN 06:01 → AC 06:12
PROVIDERS: PCP Family Medicine; Referring Provider Surgery; Visit Provider Surgery
PROC: 0DJD8ZZ Inspection of Lower Intestinal Tract, Via Natural or Artificial Opening Endoscopic (ICD-10-PCS; CPT 45378; principal; 2023-01-20 06:55)
DX: Z12.11 Encounter for screening for malignant neoplasm of colon (principal); K57.30 Diverticulosis of large intestine without perforation or abscess without bleeding; K64.0 First degree hemorrhoids; E78.00 Pure hypercholesterolemia, unspecified; I10 Essential (primary) hypertension; Z79.899 Other long term (current) drug therapy
CPT/HCPCS: 45378; 99152; 99153; J7120

== ENCOUNTER → 2023-12-30 | Outpatient (CLI) | payer BC, SELFPAY ==
[2023-12-30 12:45] LABS: Absolute Lymphocyte Count 0.76 X10^3/uL (0.83-4.51); Absolute Neutrophil Count 3.2 X10^3/uL (2.0-7.7); Basophil# 0.04 X10^3/uL; Basophil% 0.9 % (0-1); Eosinophil# 0.15 X10^3/uL; Eosinophils% 3.3 % (0-5); Hematocrit 46.6 % (40-54); Hemoglobin 15.4 g/dL (13.0-16.5); Lymphocyte # 0.76 X10^3/ul (0.83-4.51); Lymphocyte % 16.5 % (19-41); Mean Corpuscular Hgb 30.7 pg (27.0-32.0); Monocyte# 0.39 X10^3/uL; Monocyte% 8.5 % (0-10); NRBC Flagged by Analyzer 0 % (0-5); Neutrophil # 3.24 X10^3/uL (2.7-7.7); Neutrophil % 70.4 % (47-70); Platelet Count 286 K/mm3 (150-450); RBC Distribution Width SD 43.9 fl (35.1-43.9); Red Blood Count 5.01 M/mm3 (4.6-6.2); White Blood Count 4.6 K/mm3 (4.4-11.0)
[2023-12-30 13:36] LABS: ALB/GLOB Ratio 1.2 RATIO (0.9-2.4); AST(SGOT) 35 U/L (15-37); Alanine Aminotransfer ALT/SGPT 56 U/L (16-61); Albumin, Serum 4.3 g/dL (3.2-5.0); Alkaline Phosphatase 68 U/L (45-117); Anion Gap 5 (5-15); BUN 15 mg/dL (7-18); BUN/Creat Ratio 12.9 RATIO (10-20); Calcium,Total 9.5 mg/dL (8.5-10.1); Chloride 105 mmol/L (98-107); Cholesterol 184 mg/dL (200); Creatinine, Serum 1.16 mg/dL (0.70-1.30); EST Glomerular Filtration Rate 71 mL/min (>60); Est Glom Filt Rate - Afr Amer 86 mL/min (>60); Globulin 3.5 g/dL (2.2-4.2); Glucose 91 mg/dL (74-106); High Density Lipoprotein 47 mg/dL; PSA,Total - Annual Screen 0.62 ng/mL (0.00-4.00); Protein, Total 7.8 g/dL (6.4-8.2); Sodium Level 138 mmol/L (136-145); Triglycerides 199 mg/dL; Very Low Density Lipoprotein 40 mg/dL (5-40)
[2023-12-30 13:38] LABS: Microalbumin,Random Urine < 5.0 mg/L (NO RANGE EST.)
== END | disposition home or self-care (01) ==
LOC: BFHLAB 09:06
PROVIDERS: PCP Family Medicine; Referring Provider Family Medicine; Visit Provider Family Medicine
DX: Z00.00 Encounter for general adult medical examination without abnormal findings (principal); Z12.5 Encounter for screening for malignant neoplasm of prostate; I10 Essential (primary) hypertension
CPT/HCPCS: 36415; 80053; 80061; 82043; 82570; 84153; 85025; G0103

== ENCOUNTER → 2024-12-30 | Outpatient (CLI) | payer BC, SELFPAY ==
[2024-12-30 11:00] LABS: Absolute Lymphocyte Count 0.63 X10^3/uL (0.83-4.51); Absolute Neutrophil Count 3.9 X10^3/uL (2.0-7.7); Basophil# 0.05 X10^3/uL; Eosinophil# 0.18 X10^3/uL; Eosinophils% 3.5 % (0-5); Hematocrit 40.2 % (40-54); Hemoglobin 13.3 g/dL (13.0-16.5); Lymphocyte # 0.63 X10^3/ul (0.83-4.51); Lymphocyte % 12.3 % (19-41); Mean Corp Hgb Conc 33.1 g/dL (32-36); Mean Corpuscular Hgb 30.5 pg (27.0-32.0); Mean Corpuscular Volume 92.2 fL (80-94); Mean Platelet Vol. 11.3 fl (6.2-12.0); Monocyte# 0.36 X10^3/uL; NRBC Flagged by Analyzer 0 % (0-5); Platelet Count 367 K/mm3 (150-450); RBC Distribution Width CV 12.9 % (11.6-14.6); RBC Distribution Width SD 43.5 fl (35.1-43.9); Red Blood Count 4.36 M/mm3 (4.6-6.2); White Blood Count 5.1 K/mm3 (4.4-11.0)
[2024-12-30 11:31] LABS: ALB/GLOB Ratio 1.6 RATIO (0.9-2.4); AST(SGOT) 31 U/L (<=37); Alanine Aminotransfer ALT/SGPT 28 U/L (<=46); Albumin, Serum 4.3 g/dL (3.5-5.0); Alkaline Phosphatase 75 U/L (40-129); Anion Gap 13 (5-15); BUN 11 mg/dL (4-19); BUN/Creat Ratio 10.8 RATIO (10-20); Calcium,Total 8.7 mg/dL (7.6-11.0); Carbon Dioxide 24.4 mmol/L (21.0-32.0); Chloride 104 mmol/L (98-108); Cholesterol 173 mg/dL (<=200); Creatinine, Serum 1.03 mg/dL (0.70-1.20); EST Glomerular Filtration Rate 88 (>60); Globulin 2.6 g/dL (2.2-4.2); Glucose 95 mg/dL (70-99); High Density Lipoprotein 31 mg/dL; Low Density Lipoprotein Calc. 114 mg/dL; PSA,Total - Annual Screen 0.57 ng/mL (0.02-4.00); Potassium 4.1 mmol/L (3.3-5.1); Protein, Total 6.9 g/dL (5.9-8.4); Sodium Level 141 mmol/L (133-145); Total Bilirubin 0.37 mg/dL (0.00-1.30); Triglycerides 137 mg/dL; Uric Acid 7.7 mg/dL (3.5-7.2); Very Low Density Lipoprotein 27 mg/dL (5-40); cholesterol:hdl ratio screen 5.53
== END | disposition home or self-care (01) ==
LOC: MTLAB 09:26
PROVIDERS: PCP Family Medicine; Referring Provider Family Medicine; Visit Provider Family Medicine
DX: Z00.00 Encounter for general adult medical examination without abnormal findings (principal); M10.9 Gout, unspecified; Z12.5 Encounter for screening for malignant neoplasm of prostate
CPT/HCPCS: 36415; 80053; 80061; 84153; 84550; 85025; G0103

== ENCOUNTER → 2025-01-28 | Outpatient (CLI) | payer BC, SELFPAY ==
--- NOTE | 2025-01-28 08:45 | MRI_ITS ---
PROCEDURE: LOWER EXT JOINT ONLY (ROUTINE) 01/28/2025 REASON FOR EXAM: PAIN TECHNIQUE: T1, T2, PD, MRI of the left lower Extremity. Multiplanar and multisequence images were obtained without IV contrast administration. COMPARISON: COMPARISON : October 10, 2024 x-ray FINDINGS: Bone Marrow: There is a 0.5 x 0.5 cm developing osteochondral defect in the central portion of the medial femoral condyle with no free fragment. There is bony contusion in the anterior tibial plateau and posterior lateral femoral condyle with no visible displaced fracture. Cruciate ligaments: There is a edema and attenuation in the mid and distal aspect of the anterior cruciate ligament without laxity, grade 2 sprain. The posterior cruciate appears intact. Collateral ligaments: There is edema and attenuation in the mid and lower portion of the medial collateral ligament without laxity, grade 2 sprain. There is edema and attenuation in the proximal portion of the popliteus tendon without full-thickness tear, with intramuscular edema at the myotendinous junction, grade 2 strain. The lateral collateral ligament appears intact. Menisci: There is a horizontal tear in the posterior body of the medial meniscus which extends to the tibial surface, coronal image 21/33. The lateral meniscus appears intact. Effusion: There is a large joint effusion. Plica are noted in the superior joint space. MRI/Lower Ext Joint Only (Routine) IMPRESSION: There is a 0.5 x 0.5 cm developing osteochondral defect in the central portion of the medial femoral condyle with no free fragment. There is bony contusion in the anterior tibial plateau and posterior lateral fe moral condyle with no visible displaced fracture. There is a edema and attenuation in the mid and distal aspect of the anterior c ruciate ligament without laxity, grade 2 sprain. There is edema and attenuation in the mid and lower portion of the medial colla teral ligament without laxity, grade 2 sprain. There is edema and attenuation in the proximal portion of the popliteus tendon without full-thickness tear, with intramuscular edema at the myotendinous junction, grade 2 strain. There is a horizontal tear in the posterior body of the medial meniscus which e xtends to the tibial surface, coronal image 21/33. There is a large joint effusion. Plica are noted in the superior joint space. Reading [facility]
== END | disposition home or self-care (01) ==
LOC: MRI 08:16
PROVIDERS: PCP Family Medicine; Referring Provider Orthopaedic Surgery; Visit Provider Orthopaedic Surgery
DX: M25.562 Pain in left knee (principal)
CPT/HCPCS: 73721